=== PATIENT | male | born 1960 | race Caucasian/White ===

== ENCOUNTER 2018-12-14 13:35 | Outpatient (CLI) | payer OTHER | END 2018-12-14 23:59 | disposition home or self-care (01) | LOC: CARD 13:35 | PROVIDERS: ATTEND Nurse Practitioner Acute Care | DX: G40.89 Other seizures (principal); I10 Essential (primary) hypertension; F31.9 Bipolar disorder, unspecified; G47.30 Sleep apnea, unspecified; Z88.5 Allergy status to narcotic agent; Z88.8 Allergy status to other drugs, medicaments and biological substances | CPT/HCPCS: 95819 ==